=== PATIENT | male | born 1980 | race Caucasian/White ===

== ENCOUNTER 2016-09-12 06:09 | Emergency (ER) | payer OTHER ==
[~2016-09-12] VITALS: Ht 177.8 cm; Wt 75.0 kg
[2016-09-12 06:12] VITALS: BP 137/84; PULSE 133; RESP 16; O2SAT 98
--- NOTE | 2016-09-12 06:59 | ED.REPORT ---
HPI-Psychiatric Illness Date of Service Sep 12, 2016 ED Provider: Sandro Santoyo MD Pt was dropped off in lobby of ED by police voluntary. Pt states he has been having visual hallucinations. Describes thinking people had broken into his bathroom that weren't really there. Also states he can't sleep due to auditory and visual hallucinations that scare him. Complains of right ankle and back pain. States his girlfriend runoff and left him for 2 days and he was worried. Admits to smoking meth and marijuana. mental eval- voluntary brought in by PD Nursing Notes Stated Complaint: MENTAL EVAL-VOLUNTARY BROUGHT IN BY PD Chief Complaint: Psychiatric Complaint Nursing Notes Reviewed: Yes Allergies: Coded Allergies: latex (Verified Allergy, Mild, 09/12/16) Sulfa (Sulfonamide Antibiotics) (Verified Allergy, Unknown, 09/12/16) General Time Seen by MD: 06:22 Hx Obtained From: Patient Arrived By: Police Onset Occurred: Just prior to arrival Symptom Duration: Since onset Severity: Current: No pain currently Recent Healthcare: No recent doctor visit, No recent hospitalization Similar Sx Previous: No Past Medical History Past Medical History Reports: Hypertension Past Surgical History rle fracture repair Social History "used to be a bad alcoholic" Drug Use: Meth, THC Ambulatory Status Independent Review of Systems Complete sys rev & neg: except as marked. Physical Exam Initial Vital Signs Vital Signs (First) Date Time Temp Pulse Resp B/P Pulse Ox O2 Delivery O2 Flow Rate FiO2 09/12/16 06:12 36.6 133 16 137/84 98 Room Air Initial VS: Reviewed Re-Eval/Medical Decision Counseled Regarding: Diagnosis, Lab results, Need for follow-up, When/why to return to ED Discharge & Departure Disposition: Home Discharge Condition All VS Reviewed: Yes Condition: Stable Referrals: YAMILA LUCIANO (PCP) Quique Attestation Portion of this note were transcribed by Felicia Brenner. I, Dr. Santoyo, personally performed the history, physical exam, and medical decision-making: I reviewed and confirmed the accuracy for the information in the transcribed note. Signed by: quique Choudhary, 09/12/16 1000 copies to: YAIMLA LUCIANO Kirk H MD Sep 12, 2016 06:59 FELICIA BRENNER Sep 12, 2016 07:01
[2016-09-12 07:08] VITALS: PULSE 117; RESP 17; O2SAT 97
--- NOTE | 2016-09-12 09:17 | ED.REPORT ---
HPI-Psychiatric Illness Date of Service Sep 12, 2016 ED Provider: Sandro Santoyo MD The patient is a 36 year old male who was brought to the emergency department by police voluntarily. The patient states, "it has been a crazy few days, I have been under a lot of stress." He is stressed out because of his girlfriend, he is not sure if they are broken up but he has not seen her. He has experienced visual and auditory hallucinations. He states, "I am hearing people that aren't there. I am seeing people that aren't there." "I saw shadows that looked like my girlfriend was with some other vineet. I don't know what is going on. I am exhausted from being up over the last few days." He has not experienced similar symptoms in the past. He has occasionally felt suicidal but has never acted on these thoughts. He is unsure if these thoughts are any worse today. He states he has history of PTSD and a "bad childhood." He does not take any psychiatric medication. The patient smokes tobacco, drinks alcohol, and has recently been smoking meth. He also complains of "full body pain." Nursing Notes Stated Complaint: MENTAL EVAL-VOLUNTARY BROUGHT IN BY PD Chief Complaint: Psychiatric Complaint Nursing Notes Reviewed: Yes ([place], [employer] not reconciled) Allergies: Coded Allergies: latex (Verified Allergy, Mild, 09/12/16) Sulfa (Sulfonamide Antibiotics) (Verified Allergy, Unknown, 09/12/16) General Time Seen by MD: 09:16 Chief Complaint Hallucinations, auditory, Hallucinations, visual Hx Obtained From: Patient, Police Arrived By: Police Onset Occurred: 4 days ago Symptom Duration: Since onset Progression Since Onset: Constant, Gradually worsening Quality: Painful Severity: Current: Moderate Severity: Maximum: Moderate Recent Healthcare: No recent doctor visit, No recent hospitalization Similar Sx Previous: No Risk-Psychiatric Illness Suicide Risk Stratification RF Statements: Risk factors reviewed (not predicative) Past Medical History Past Medical History He reports history of PTSD Reports: Hypertension Past Surgical History Ankle surgery Jaw surgery Smoking History Current Every Day Smoker Social History Reports alcohol use and history of alcohol abuse Drug Use: Meth, THC Other Social History: Local resident Ambulatory Status Independent Review of Systems Review of Systems Note: +"full body pain" Psychiatric: Reports: Anxiety, Change mental status, Hallucinations, auditory, Hallucinations, visual, Insomnia, Stress Complete sys rev & neg: except as marked. Physical Exam Initial Vital Signs Vital Signs (First) Date Time Temp Pulse Resp B/P Pulse Ox O2 Delivery O2 Flow Rate FiO2 09/12/16 06:12 36.6 133 16 137/84 98 Room Air Initial VS: Reviewed, Vital signs abnormal Extremities: Vascular intact, Neuro intact Skin: Warm, Dry, No cyanosis General/Constitutional: Alert, No acute distress Drowsy, disheveled, cooperative and answering questions, poor hygiene, no signs of trauma. NEURO: answering questions, moving all extremities Abnormal Thinking / Perception: Positive: Delusions - paranoid, Hallucinations , auditory, Hallucinations, visual He says he has suicidal thoughts from time to time but does not appear to be currently suicidal. He is paranoid. He has limited insight but is preserved enough that he recognizes that he thinks he is seeing things but is having a hard time distinguishing reality. He has delusions about people breaking in. He is mildly disorganized. Head / Eyes: Atraumatic, Normocephalic Pupils are mildly dilated ENT: Airway patent Poor dentition Respiratory / Chest: Atraumatic, Breath sounds NL, Breath sounds = bilat, No respiratory distress, No rales, No rhonchi, No wheezing Cardiovascular: Regular rhythm, Heart sounds NL, No gallop, No murmurs, No rubs Heart Rate / Rhythm: Positive: Tachycardia Abdomen: Atraumatic, Soft, Non-tender Neck: Atraumatic, Supple, Full range of motion, No swelling, Non-tender, No midline vertebral tend Upper Extremity / MS: No deformity, Neurologic intact, Vascular intact No track barillas. Some cigarette barillas and clubbing of fingers. Interpretation & Diagnostics Interpretation & Diagnostics: Urine drug screen: positive for methamphetamines Lab Results Interpretation Result Diagram: 09/12/16 1030 09/12/16 1030 Test 09/12/16 10:30 White Blood Count 10.6th/mm3 (3.8-10.1) Red Blood Count 4.61mil/mm3 (4.40-5.80) Hemoglobin 14.6g/dL (13.8-17.2) Hematocrit 42.1% (41.0-50.0) Mean Corpuscular Volume 91.3fL (81-100) Mean Corpuscular Hemoglobin 31.7pg (27.0-35.0) Mean Corpuscular Hemoglobin Concent 34.7% (32.0-37.0) Red Cell Distribution Width 12.3% (12.3-15.4) Platelet Count 264bil/L (150-400) Neutrophils (%) (Auto) 71.4% (40-74) Lymphocytes (%) (Auto) 17.7% (14-46) Monocytes (%) (Auto) 9.9% (4-12) Eosinophils (%) (Auto) 0.5% (0-5) Basophils (%) (Auto) 0.3% (0-3) Sodium Level 135mEq/L (134-144) Potassium Level 3.8mEq/L (3.5-5.2) Chloride Level 94mEq/L (97-108) Carbon Dioxide Level 24mmol/L (18-29) Blood Urea Nitrogen 13mg/dL (6-20) Creatinine 0.60mg/dL (0.76-1.27) Estimat Glomerular Filtration Rate 162mL/min (>59) Glucose Level 95mg/dL (60-99) Calcium Level 9.1mg/dL (8.5-10.1) Total Bilirubin 0.7mg/dL (0.0-1.2) Aspartate Amino Transf (AST/SGOT) 28U/L (0-50) Alanine Aminotransferase (ALT/SGPT) 11U/L (0-44) Alkaline Phosphatase 77U/L (25-150) Total Creatine Kinase 501U/L (21-232) Total Protein 7.5g/dL (6.4-8.4) Albumin 4.3g/dL (3.4-5.0) Alcohol, Quantitative < 10mg/dL (0-10) Lab Results Interpretation: CBC normal CMP normal CK nonspecific elevation, no findings of significant clinically relevant rhabdomyolysis Alcohol Utox positive for meth ECG Interpretation ECG Interpretation: Q waves anteriorly No acute ischemia Time: 09:50 Interpreted by: ED physician Re-Eval/Medical Decision Med Decision/Clinical Course This is a 36-year-old male brought by police after he called 911 with alleged delusions that people are breaking into his house. He admits he is seeing things and people that are not there, is paranoid that people are out after he has enough to realize he does not think this is reality. He hears voices. He reports an acute stressor of some sort of what sounds like a breakup with a girlfriend, admits to use these past few days. He is used alcohol in the past, but states that he has been sober for a few weeks and not been using alcohol. He denies prior psychiatric history although he admits from off on trace suicidal ideation without a plan without desire to act. He is initially requesting help and is brought by police in a voluntary status. On exam his dilated pupils he is tachycardic, is slightly restless and has features consistent with methamphetamine use. He has a component of paranoia, he has some delusions, he reports he still having auditory and visual hallucinations but has some limited insight recognize that what he thinks he is seeing is not entirely real. Example he is able to tell us that he keeps having this vision of the emergency department staff trying to poison him, even though he knows that has not was happening. He denies any current suicidal ideation at this time. Aside from the tachycardia which improved with some time, his physical exam is otherwise normal except described above. He is delusional, with limited but somewhat preserved insight. He is having auditory and visual hallucinations. 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 His agitation was such that I provided him with a single dose of Zyprexa initially as the patient seemed to be able have enough self restraint P a candidate for maintenance in the room now requiring a seclusion room, they are trying to safely settle the patient down and it did help. Labs were obtained and were normal. Temp trying to get here and he could piece an IV was placed and was hydrated. Did ultimately provide urine it is positive for meth. The patient was seen on multiple rechecks continues to do poorly - he continues to have ongoing psychotic components. He was only slightly improved post the Zyprexa, but did rest considerably. He had an episode of diaphoresis without complaints, I suspect this is from withdrawal and his repeat vitals demonstrated no fever. Glucose was normal. The patient had no new complaints. Over the course of the day the patient continues of ongoing psychosis, and again this is strong suspicion that it is mostly methamphetamine induced. The study was been involved, there really no beds available for this site, and the patient's main issue appears to be most likely substance induced at this stage. They are not current beds available at detox either. At the same time while the patient's markedly improved, he is still psychotic with ongoing symptoms, and has not yet appropriate for discharge. For the patient's being turned over to the oncoming provider for continued observation and reevaluation. Source of Hx: Old records Re-Evaluation/Progress #1: Time of Eval: 12:10 Re-Evaluation/Progress Note: Rechecked the patient. He is diaphoretic but sleeping comfortably. Re-Evaluation/Progress #2: Time of Eval: 12:55 Re-Evaluation/Progress Note: Rechecked the patient. He is diaphoretic and still drowsy. He is not very cooperative in terms of he will not move his arms for EKG. His glucose is normal, he has no new complaints. Re-Evaluation/Progress #3: Time of Eval: 15:18 Re-Evaluation/Progress Note: MIDWIFE waiting for urine results. Consultation #1: Consulted With: roll scale worker Requested Call at: 11:00 Note: MIDWIFE will see the patient when his test results are back. Consultation #2: Consulted With: roll scale worker Call Returned at: 16:00 Note: ED social work case manager would like the patient to remain in the emergency department for observation. Counseled Regarding: Diagnosis, Lab results Discharge & Departure Shift Change Sign-Out Patient Care Transferred: Yes Discussed Complaint(s): Yes Laboratory Evaluation: Lab evaluation discussed Response to Therapy: Discussed Impression: Primary Impression: Psychosis Psychosis type: unspecified psychosis type Qualified Code: F29 - Unspecified psychosis not due to a substance or known physiological condition Additional Impressions: Amphetamine abuse Acute situational disturbance Discharge Condition All VS Reviewed: Yes Condition: Stable Referrals: YAMILA LUCIANO (PCP) Care Transferred to: Dr. Khan Care Transferred at: 18:01 Deandra Attestation Portions of this note were transcribed by Cora Gray. I, Dr. Michelle personally performed the history, physical exam and medical decision-making; I reviewed and confirmed the accuracy of the information in the transcribed note. Signed by: Deandra Duque, 09/12/2016 at 1800. copies to: YAMILA LUCIANO Matthew F MD Sep 12, 2016 09:17 Cora Gray Sep 12, 2016 09:30
[2016-09-12] MEDS ORDERED: OLANZapine Zydis ODT 5 mg Tablet PO ONE (09:30)
[2016-09-12] MEDS ORDERED: 0.9% Sodium Chloride 1,000 ML IV ONE ×2 (09:30→15:20)
[2016-09-12 10:23] VITALS: BP 110/66; PULSE 101; RESP 16; O2SAT 98
[2016-09-12 10:35] LABS: BASOPHILS % (AUTO) 0.3 % (0-3); EOSINOPHILS % (AUTO) 0.5 % (0-5); MONOCYTES % (AUTO) 9.9 % (4-12); Mean Corpuscular Hemoglobin 31.7 pg (27.0-35.0); Mean Corpuscular Volume 91.3 fL (81-100); NEUTROPHILS % (AUTO) 71.4 % (40-74); Platelet Count 264 bil/L (150-400)
[2016-09-12] MEDS ORDERED: Bacitracin Ointment Packet TOPICAL ONE (12:05)
[2016-09-12 12:13] VITALS: BP 119/59; PULSE 86; RESP 14; O2SAT 99
[2016-09-12 15:38] VITALS: BP 109/57; PULSE 74; RESP 16; O2SAT 100
[2016-09-12 20:52] VITALS: BP 108/61; PULSE 82; O2SAT 97
[2016-09-13 01:24] VITALS: BP 98/70; PULSE 81; RESP 18; O2SAT 99
[2016-09-13] MEDS ORDERED: HYDROcodone-APAP 5-325 mg Tablet PO ONE (01:40)
[2016-09-13] MEDS ORDERED: HYDR-4003 PO (02:27)
--- NOTE | 2016-09-13 08:37 | DRSVH ---
PROCEDURE: X-RAY LUMBAR SPINE, 2 OR 3 VIEW INDICATIONS: fall TECHNIQUE: 3 views of the lumbar spine were acquired. COMPARISON: None. FINDINGS: Bones: 5 [id number] vertebrae are present. Minimal curvature and trace multilevel retrolisthesi s. No vertebral body compression fractures. No suspicious bony lesions. Soft tissues: Overlying bowel gas pattern is normal. No suspicious soft tissue calcifications. IMPRESSION: No displaced fracture seen. If there is continued pain, followup exam or additional imaging such as MRI or CT could be performed for further assessment. Minimal rightward curvature and trace multilevel retrolisthesis. Dictated by: Jerome Marmolejo [facility] Interpreted: Edmund Pierre MD on 09/13/2016 at 8:35 Transcribed by: AXEL on 09/13/2016 at 8:36 Approved by: Edmund Pierre M.D. on 09/13/2016 at 9:02
== END 2016-09-13 02:53 | disposition home or self-care (01) ==
LOC: SED 06:09
DX: F29 Unspecified psychosis not due to a substance or known physiological condition (principal); F15.10 Other stimulant abuse, uncomplicated; F43.0 Acute stress reaction; I10 Essential (primary) hypertension; F17.200 Nicotine dependence, unspecified, uncomplicated; Z88.2 Allergy status to sulfonamides; Z91.040 Latex allergy status
CPT/HCPCS: 36415; 72100; 80053; 81002; 82550; 82948; 85025; 93005; 96360; 96361; 99285; G0480; J7030